=== PATIENT | male | born 1960 | race American Indian/Alaskan Native ===

== ENCOUNTER 2018-10-02 14:19 | Inpatient (IN) | payer OTHER ==
--- NOTE | 2018-10-02 15:04 | Event Note ---
ED Screening Note ED Screening Note: woke up yest with r side weakness pmh none psh none rx none thought it would go away slight r hand grasp weakness taking po ambulatory This initial assessment/diagnostic orders/clinical plan/treatment(s) is/are subject to change based on patients health status, clinical progression and re- assessment by fellow clinical providers in the ED. Further treatment and workup at subsequent clinical providers discretion. Patient/guardian urged not to elope from the ED as their condition may be serious if not clinically assessed and managed. Initial orders include: labs urine [address] C Jc [facility]
[2018-10-02 15:38] LABS: Basophils % (Auto) 0.6 % (0.0-1.8); Eosinophils # (Auto) 0.2 K/mm3 (0.0-0.4); Hematocrit 41.7 % (35.5-45.6); Hemoglobin 13.9 gm/dl (11.8-15.2); Lymphocytes # (Auto) 1.5 K/mm3 (1.2-5.4); Lymphocytes % (Auto) 17.3 % (13.4-35.0); Mean Corpuscular HGB Conc 33 % (32-34); Mean Corpuscular Volume 94 fl (84-94); Monocytes # (Auto) 0.7 K/mm3 (0.0-0.8); Monocytes % (Auto) 8.2 % (0.0-7.3); Platelet Count 337 K/mm3 (140-440); Red Blood Count 4.43 M/mm3 (3.65-5.03); Red Cell Distribution Width 14.4 % (13.2-15.2)
[2018-10-02 15:56] LABS: Creatine Kinase MB 3.6 ng/mL (0.0-4.0)
[2018-10-02 15:59] LABS: Alanine Aminotransferase 17 units/L (7-56); Albumin 4.1 g/dL (3.9-5); BUN/Creatinine Ratio 13; Blood Urea Nitrogen 10 mg/dL (9-20); Calcium 9.1 mg/dL (8.4-10.2); Hemolysis Index 58
--- NOTE | 2018-10-02 16:34 | Cat Scan Report ---
PROCEDURE: CT head without contrast. TECHNIQUE: Computerized tomography of the head was performed without contrast material. CT DOSE LENGTH PRODUCT: 1370.45 mGycm HISTORY: weak r side since yesterday am COMPARISONS: None. FINDINGS: The ventricles are normal in size. There are 2 small focal areas of diminished attenuation within the deep white matter of both frontal lobes. These are consistent with old lacunar infarcts. There may a lso be some focal areas of encephalomalacia involving the medial portions of both frontal lobes. This is seen on image 20 of series 2. This could represent a previous cortical infarct. It could also rep resent partial volume averaging with a horizontal sulcus. An MRI scan would be the best means of furt her evaluation. There are no mass lesions. There is no intracranial hemorrhage. The calvarium appears intact. The mastoid air cells and visualized paranasal sinuses are well aerated. There is a small william bcutaneous lipoma in the left temporal region. This measures 2.4 cm x 0.5 cm in cross-section. IMPRESSION: Probable chronic ischemic changes as described. No definite signs of acute disease. MRI s can may be indicated. Small left-sided scalp lipoma. This document is electronically signed by Woodrow Parr MD., Oct 02 2018 05:32:07 PM ET
[2018-10-02 16:52] LABS: Bilirubin,Urine NEG (Negative); Blood,Urine SM (Negative); Color,Urine Yellow (Yellow); Mucus,Urine FEW /HPF; Protein,Urine <15 mg/dL mg/dL (Negative); Urobilinogen,Urine < 2.0 mg/dL (<2.0)
[2018-10-02] MEDS ORDERED: ASPIRIN PO ONE (17:13)
--- NOTE | 2018-10-02 17:17 | Emergency Department Report ---
HPI - General Chief Complaint: Neuro Symptoms/Deficit Time Seen by Provider: 10/02/18 15:04 - HPI HPI: Room 6 The patient is a 57-year-old male presenting with a chief complaint of right- sided weakness. Patient states he noticed yesterday morning when he awakened at 09:30 he had weakness in his right upper extremity and right lower extremity. Patient denies numbness dizziness or pain. Patient's last known well time was 21:3 09/30/2018. The patient states she has difficulty holding things with his right upper extremity. Patient states he had a slight headache last night but took an aspirin and it resolved. Location: [See above] Duration: [See above] Quality: Weakness Severity: Moderate Modifying factors: [see above] Context: [see above] Mode of transportation: [not driving] ED Past Medical Hx - Past Medical History Hx Hypertension: Yes - Surgical History Past Surgical History?: No - Family History Family history: no significant - Social History Smoking Status: Never Smoker Substance Use Type: None (denies illicit drug use), Alcohol (occasional) ED Review of Systems ROS: Stated complaint: R SIDE NUMBNESS/WEAKNESS Other details as noted in HPI Constitutional: no symptoms reported Eyes: denies: eye pain ENT: denies: throat pain Respiratory: no symptoms reported Cardiovascular: denies: chest pain Endocrine: no symptoms reported Gastrointestinal: denies: abdominal pain Genitourinary: denies: dysuria Musculoskeletal: denies: back pain Neurological: headache, weakness. denies: numbness Physical Exam - Physical Exam Vital Signs: Vital Signs 10/02/18 15:04 Temperature 98.3 F Pulse Rate 98 H Respiratory 20 Rate Blood Pressure 138/81 [Right] O2 Sat by Pulse 98 Oximetry Physical Exam: GENERAL: The patient is well-developed well-nourished male lying on stretcher not appear to be in acute distress. [] HEENT: Normocephalic. Atraumatic. Extraocular motions are intact. Patient has moist mucous membranes. NECK: Supple. No carotid bruits auscultated CHEST/LUNGS: Clear to auscultation. There is no respiratory distress noted. HEART/CARDIOVASCULAR: Regular. There is no tachycardia. There is no gallop rub or murmur. ABDOMEN: Abdomen is soft, nontender. Patient has normal bowel sounds. There is no abdominal distention. SKIN: There is no rash. There is no edema. There is no diaphoresis. NEURO: The patient is awake, alert, and oriented. The patient is cooperative. Cranial nerves II through XII grossly intact. Slight drift of the right upper extremity but he does not fall to the bed. The left leg drifts slightly but does not fall to the bed in 5 seconds. The patient has normal speech MUSCULOSKELETAL: There is no evidence of acute injury. NIHSS= 2 LOC a. Alert= 0 Not alert but arousable to minor stimuli=1 Not alert requires repeated or strong stimuli to move= 2 Responds only reflex motor or unresponsive=3 b. asks month and age answers both correctly= 0 answers one correctly= 1 answers neither correctly= 2 Best Gaze normal= 0 abnormal in one or both but forced deviation or total paresis absent= 1 forced deviation or total gaze paresis= 2 Visual no visual loss= 0 partial hemianopia= 1 complete hemianopia= 2 bilateral hemianopia= 3 Facial Palsy normal= 0 minor paralysis= 1 partial paralysis= 2 complete paralysis= 3 Motor Arm no drift= 0 (+)drift before 10 secs but doesnt hit bed= 1 some effort against gravity= 2 no effort against gravity= 3 no movement= 4 Motor leg no drift= 0 (+)drift before 5 secs but doesnt hit bed= 1 drifts to bed before 5 secs= 2 no effort against gravity= 3 no movement= 4 Limb ataxia absent=0 present in one limb= 1 present in two limbs= 2 Sensory normal= 0 mild sensory loss= 1 severe (unaware of being touched)= 2 Best language mild/some loss of fluency= 1 severe= 2 mute= 3 Dysarthria normal= 0 slurs some words= 1 severe/unintelligible= 2 Extinction and Inattention no abnormality= 0 visual, tactile, auditory or personal inattention= 1 profound (doesnt recognize own hand or orients to only one side= 2 ED Course Vital Signs 10/02/18 15:04 Temperature 98.3 F Pulse Rate 98 H Respiratory 20 Rate Blood Pressure 138/81 [Right] O2 Sat by Pulse 98 Oximetry ED Medical Decision Making - Lab Data Result diagrams: 10/02/18 15:20 10/02/18 15:20 - EKG Data -: EKG Interpreted by Mn EKG shows normal: sinus rhythm Rate: normal - EKG Data When compared to previous EKG there are: previous EKG unavailable Interpretation: nonspecific ST-T wave drake (flat and T-wave lead aVL) - Radiology Data Radiology results: report reviewed (CT head), image reviewed (CT head) [facility] [address] [place] [address] Cat Scan Report Signed Patient: PAULA CEBALLOS MR#: [id number] : 1960 Acct:[id number] Age/Sex: 57 / M ADM Date: 10/02/18 Loc: ED Attending Dr: Ordering Physician: JAMEE HUSAIN Date of Service: 10/02/18 Procedure(s): CT head/brain wo con Accession Number(s): [id number] cc: JAMEE HUSAIN PROCEDURE: CT head without contrast. TECHNIQUE: Computerized tomography of the head was performed without contrast material. CT DOSE LENGTH PRODUCT: 1370.45 mGycm HISTORY: weak r side since yesterday am COMPARISONS: None. FINDINGS: The ventricles are normal in size. There are 2 small focal areas of diminished attenuation within the deep white matter of both frontal lobes. These are consistent with old lacunar infarcts. There may also be some focal areas of encephalomalacia involving the medial portions of both frontal lobes. This is seen on image 20 of series 2. This could represent a previous cortical infarct. It could also represent partial volume averaging with a horizontal sulcus. An MRI scan would be the best means of further evaluation. There are no mass lesions. There is no intracranial hemorrhage. The calvarium appears intact. The mastoid air cells and visualized paranasal sinuses are well aerated. There is a small subcutaneous lipoma in the left temporal region. This measures 2.4 cm x 0.5 cm in cross-section. IMPRESSION: Probable chronic ischemic changes as described. No definite signs of acute disease. MRI scan may be indicated. Small left-sided scalp lipoma. This document is electronically signed by Woodrow Parr MD., Oct 02 2018 05:32:07 PM ET Transcribed By: [facility] Dictated By: WOODROW PARR MD Electronically Authenticated By: WOODROW PARR MD Signed Date/Time: 10/02/18 1634 DD/ 16 TD/TT: 05/31 /19 1617 - Differential Diagnosis CVA Critical care attestation.: If time is entered above; I have spent that time in minutes in the direct care of this critically ill patient, excluding procedure time. ED Disposition Clinical Impression: CVA (cerebral vascular accident), Right sided weakness Disposition: OP ADMIT IP TO THIS HOSP Is pt being admited?: Yes Does the pt Need Aspirin: Yes Condition: Fair Time of Disposition: 17:18 (hospitalist paged (Dr Mccormick))
[2018-10-02] MEDS ORDERED: MILK OF MAGNESIA PO PRN (17:28)
[2018-10-02] MEDS ORDERED: DULCOLAX PR PRN (17:28)
[2018-10-02] MEDS ORDERED: PHENERGAN PR PRN (17:28)
[2018-10-02] MEDS ORDERED: REGLAN PO PRN (17:28)
[2018-10-02] MEDS ORDERED: PROVENTIL IH PRN (17:28)
--- NOTE | 2018-10-02 17:32 | History and Physical Report ---
History of Present Illness Chief complaint: I feel weak on my right side History of present illness: 57 YO Male with HTN, Obesity presents to ED for evaluation. Pt states that he experienced right arm and leg weakness on the day prior to admission. Pt was last in his usual state of health at bedtime around 2100hrs on 09/30/18. Pt awoke from sleep on the morning of 10/01/18 with the aforementioned symptoms. Pt states that he thought that the symptoms wound go away, and he proceeded with his normal activities with difficulty. Pt states that the symptoms have not improved. Pt transported to [facility] via private vehicle. Pt seen and evaluated in ED and found to have symptoms consistent with CVA. A code stroke was called, Pt is outside therapeutic window for TPA. Pt admitted to telemetry and initiated on CVA protocol. Pt denies fever, chills, CP, Palpitations, NVD, Trauma, BRBPR, Unintentional weight loss, night sweats, or recent ill contacts. Neurology consulted in ED. No prior admissions for review. No medication listed for reconciliation at time of admission. Past History Past Medical History: hypertension, other (Obesity) Past Surgical History: No surgical history, Other (reviewed) Social history: single. denies: smoking, alcohol abuse, prescription drug abuse Family history: hypertension Medications and Allergies Allergies Allergy/AdvReac Type Severity Reaction Status Date / Time No Known Allergies Allergy Verified 10/02/18 15:05 Active Meds: Active Medications Sodium Chloride (Sodium Chloride Flush Syringe 10 Ml) 10 ml INJ PRN PRN PRN Reason: LINE FLUSH Review of Systems Constitutional: no weight loss Ears, nose, mouth and throat: no deferred, no ear pain, no nose pain, no nasal congestion Cardiovascular: no chest pain, no orthopnea, no palpitations, no rapid/irregular heart beat, no syncope, no lightheadedness Respiratory: no cough, no cough with sputum, no excessive sputum, no hemoptysis, no shortness of breath, no dyspnea on exertion Gastrointestinal: no abdominal pain, no nausea, no vomiting, no diarrhea, no constipation Genitourinary Male: no hematuria, no flank pain, no discharge, no urinary frequency Rectal: no pain, no incontinence, no bleeding Musculoskeletal: no neck stiffness, no neck pain, no shooting arm pain, no arm numbness/tingling, no shooting leg pain, no leg numbness/tingling Integumentary: no rash, no pruritis, no redness, no sores, no wounds, no jaundice Neurological: weakness, numbness, lack of coordination, gait dysfunction, no head injury, no transient paralysis, no vertigo, no headaches, no migraines Psychiatric: no anxiety, no memory loss, no change in sleep habits, no sleep disturbances, no disorientation Endocrine: no cold intolerance, no heat intolerance, no polyphagia, no excessive thirst, no polydipsia Hematologic/Lymphatic: no easy bruising, no easy bleeding, no lymphadenopathy, no lymphedema Allergic/Immunologic: no urticaria, no allergic rhinitis, no wheezing, no persistent infections, no anaphylaxis Exam - Constitutional Vitals: Temp Pulse Resp BP Pulse Ox 98.9 F 80 13 215/119 98 10/02/18 17:27 10/02/18 17:27 10/02/18 17:27 10/02/18 17:27 10/02/18 17:27 General appearance: Present: no acute distress, well-nourished - EENT Eyes: Present: PERRL ENT: hearing intact, clear oral mucosa - Neck Neck: Present: supple, normal ROM - Respiratory Respiratory effort: normal Respiratory: bilateral: CTA - Cardiovascular Heart Sounds: Present: S1 & S2. Absent: rub, click - Extremities Extremities: pulses symmetrical, No edema Peripheral Pulses: within normal limits - Abdominal General gastrointestinal: Present: soft, non-tender, non-distended, normal bowel sounds Male genitourinary: Present: normal - Integumentary Integumentary: Present: clear, warm, dry - Musculoskeletal Musculoskeletal: right sided weakness - Psychiatric Psychiatric: appropriate mood/affect, intact judgment & insight - Neurologic Neurologic: CNII-XII intact, moves all extremities, no gait normal Results - Labs CBC & Chem 7: 10/02/18 15:20 10/02/18 15:20 Labs: Abnormal lab results 10/02/18 10/02/18 Range/Units 15:20 15:20 [place] % (Auto) 8.2 H (0.0-7.3) % Seg Neutrophils % 71.9 H (40.0-70.0) % Total Creatine Kinase 265 H (55-170) units/L Assessment and Plan - Patient Problems (1) Obesity Current Visit: Yes Status: Acute (2) HTN (hypertension) Current Visit: Yes Status: Acute Qualifiers: Hypertension type: essential hypertension Qualified Code(s): I10 - Essential (primary) hypertension Plan to address problem: permissive hypertension overnight, monitor bp q shift, (3) CVA (cerebral vascular accident) Current Visit: No Status: Acute Qualifiers: Precerebral and cerebral artery: middle cerebral artery Laterality of affected vessel: left Plan to address problem: CVA Protocol: CT head, MRI Brain, MRA Brain, Echo, Carotid Doppler, Antiplatet therapy, PT/OT/Speech, Lipid panel, statin therapy, Neurology consulted. (4) Right sided weakness Current Visit: No Status: Acute Plan to address problem: PT consulted, OT consulted, (5) DVT prophylaxis Current Visit: Yes Status: Acute Plan to address problem: SCD to BLE while in bed, pt ambulatory
[2018-10-02] MEDS ORDERED: ASPIRIN ONE (18:44)
--- NOTE | 2018-10-02 19:43 | Vascular Lab Report ---
PROCEDURE: Bilateral duplex carotid artery ultrasound. TECHNIQUE: Duplex Doppler ultrasound of the common, internal and external carotid arteries and the v ertebral arteries was performed bilaterally. Agarwal scale imaging, velocity spectral waveform analysis, and color flow Doppler were employed. HISTORY: stroke COMPARISONS: None. Note: Measurement of carotid stenosis is based on flow velocity values that correlate with the [place] Symptomatic Carotid Endarterectomy Trial (NASCET) based stenosis criteria using the internal carotid artery diameter as the denominator for stenosis calculation. FINDINGS: Right side: The common carotid artery appears widely patent. There is no significant plaque formation identified visually. The peak systolic velocity measurements are as follows: Mid internal carotid ar lucas 96.9 cm/s, proximal common carotid artery 129.7 cm/s, right internal carotid/common carotid [place] ratio 0.75. These values are within normal limits and indicate a less than 50% stenosis of the i nternal carotid artery by Doppler criteria. Antegrade flow is confirmed in the right vertebral artery . Left side: There is no significant plaque formation visible. The left common carotid artery appears p atent. The peak systolic velocity measurements are as follows: Distal left internal carotid artery 10 1.8 cm/s, proximal common carotid artery 123.6 cm/s, left internal carotid/common carotid velocity ra elkin 0.82. These values are within normal limits and indicate a less than 50% stenosis of the internal carotid artery. Antegrade flow is confirmed in the left vertebral artery. IMPRESSION: Less than 50% stenosis of both internal carotid arteries. This document is electronically signed by Woodrow Parr MD., Oct 02 2018 08:41:23 PM ET
[2018-10-02] MEDS: APRESOLINE IV PRN (20:50)
[2018-10-03] MEDS: APRESOLINE IV PRN ×4 (00:51→21:44)
[2018-10-03] MEDS: TYLENOL PO PRN ×2 (08:49→18:52)
[2018-10-03] MEDS: PLAVIX PO SCH ×2 (08:50→10:29)
[2018-10-03] MEDS: SODIUM CHLORIDE FLUSH SYRINGE 10 ML IV PRN (21:44)
[2018-10-04] MEDS: APRESOLINE IV PRN ×4 (01:17→21:54)
[2018-10-04] MEDS: ZOFRAN IV PRN (04:30)
[2018-10-04] MEDS: NORVASC PO SCH (09:56)
[2018-10-04] MEDS: PLAVIX PO SCH (09:57)
[2018-10-04] MEDS: SODIUM CHLORIDE FLUSH SYRINGE 10 ML IV PRN (10:00)
--- NOTE | 2018-10-04 15:21 | Progress Note ---
Assessment and Plan (1) Acute CVA (cerebral vascular accident) Current Visit: No Status: Acute Qualifiers: Precerebral and cerebral artery: middle cerebral artery Laterality of affected vessel: left Plan to address problem: CVA Protocol: CT head, MRI Brain, MRA Brain, Echo, Carotid Doppler, Antiplatet therapy, PT/OT/Speech, Lipid panel, statin therapy, Neurology consulted. 3/5 power in RUE 4/5 power in RLE MRI could not be donebecause of patients weight (2) HTN (hypertension) Current Visit: Yes Status: Acute Qualifiers: Hypertension type: essential hypertension Qualified Code(s): I10 - Essential (primary) hypertension Plan to address problem: permissive hypertension overnight, monitor bp q shift, (3) Obesity Current Visit: Yes Status: Acute Bariatric surgery referral as outpatient (4) Right sided weakness Current Visit: No Status: Acute Plan to address problem: PT consulted, OT consulted, (5) DVT prophylaxis Current Visit: Yes Status: Acute Plan to address problem: SCD to BLE while in bed, pt ambulatory Subjective Date of service: 10/03/18 Principal diagnosis: L CVA with Rt side weakness Interval history: Power improving MRI and MRA could not be done because of his weight Objective - Constitutional Vitals: Vital Signs - 12hr 10/04/18 10/04/18 10/04/18 05:12 09:17 09:56 Temperature 99.4 F Pulse Rate 95 H 95 H Respiratory 18 Rate Blood Pressure 158/85 183/98 O2 Sat by Pulse 93 94 Oximetry 10/04/18 10/04/18 10/04/18 09:58 11:00 12:00 Temperature 99.5 F Pulse Rate 95 H 95 H 108 H Respiratory 17 16 Rate Blood Pressure 183/98 138/91 O2 Sat by Pulse 96 Oximetry General appearance: Present: no acute distress, well-nourished - EENT Eyes: PERRL, EOM intact ENT: hearing intact, clear oral mucosa Ears: bilateral: normal - Neck Neck: supple, normal ROM - Respiratory Respiratory effort: normal Respiratory: bilateral: CTA - Breasts Breasts: normal - Cardiovascular Rhythm: regular Heart Sounds: Present: S1 & S2. Absent: gallop, rub Extremities: pulses intact, No edema, normal color, Full ROM - Gastrointestinal General gastrointestinal: Present: soft, non-tender, non-distended, normal bowel sounds - Genitourinary Male genitourinary: normal - Integumentary Integumentary: clear, warm, dry - Musculoskeletal Musculoskeletal: 1, strength equal bilaterally - Neurologic Neurologic: moves all extremities - Psychiatric Psychiatric: memory intact, appropriate mood/affect, intact judgment & insight - Labs CBC & Chem 7: 10/02/18 15:20 10/02/18 15:20
[2018-10-05] MEDS: APRESOLINE IV PRN ×2 (02:12→18:28)
[2018-10-05] MEDS: ZOFRAN IV PRN (02:50)
[2018-10-05] MEDS: NORVASC PO SCH (12:01)
[2018-10-05] MEDS: PLAVIX PO SCH (12:02)
--- NOTE | 2018-10-05 14:18 | Consultation ---
History of Present Illness Consult date: 10/05/18 Consult reason: arrhythmia (NSVT) History of present illness: This is a 58 year old man with a history of hypertension who is admitted for suspected CVA. Neurology evaluation and workup is in progress. A cardiac consultation has been requested for transient ectopy seen on telemetry. A 12 lead ECG is sinus rhythm, no acute ischemic changes. There were no reports of shortness of breath, chest pain or palpitations. Patient remained asymptomatic. An echocardiogram done today reports a technically difficult study but normal left ventricular systolic function, ejection fraction 55-60%. Bubble study is suboptimal. Past History Past Medical History: hypertension, other (Obesity) Past Surgical History: No surgical history, Other (reviewed) Social history: single. denies: smoking, alcohol abuse, prescription drug abuse Family history: hypertension Medications and Allergies Allergies Allergy/AdvReac Type Severity Reaction Status Date / Time No Known Allergies Allergy Verified 10/02/18 15:05 Home Medications Medication Instructions Recorded Confirmed Last Taken Type No Known Home Medications [No 10/02/18 10/02/18 Unknown History Reported Home Medications] Active Meds: Active Medications Acetaminophen (Tylenol) 650 mg PO Q4H PRN PRN Reason: Pain, Mild (1-3) Last Admin: 10/03/18 18:52 Dose: 650 mg Documented by: Albuterol (Proventil) 2.5 mg IH Q3HRT PRN PRN Reason: Shortness Of Breath Amlodipine Besylate (Norvasc) 5 mg PO QDAY [facility] Last Admin: 10/05/18 12:01 Dose: 5 mg Documented by: Atorvastatin Calcium (Lipitor) 40 mg PO QHS [facility] Last Admin: 10/04/18 21:54 Dose: 40 mg Documented by: Bisacodyl (Dulcolax) 10 mg MD QDAY PRN PRN Reason: Constipation Clopidogrel Bisulfate (Plavix) 75 mg PO QDAY [facility] Last Admin: 10/05/18 12:02 Dose: 75 mg Documented by: Hydralazine HCl (Apresoline) 10 mg IV Q3H PRN PRN Reason: Hypertension Last Admin: 10/05/18 02:12 Dose: 10 mg Documented by: Magnesium Hydroxide (Milk Of Magnesia) 30 ml PO Q4H PRN PRN Reason: Constipation Metoclopramide HCl (Reglan) 10 mg PO Q6H PRN PRN Reason: Nausea And Vomiting Ondansetron HCl (Zofran) 4 mg IV Q8H PRN PRN Reason: Nausea And Vomiting Last Admin: 10/05/18 02:50 Dose: 4 mg Documented by: Promethazine HCl (Phenergan) 25 mg MD Q6H PRN PRN Reason: Nausea And Vomiting Sodium Chloride (Sodium Chloride Flush Syringe 10 Ml) 10 ml IV PRN PRN PRN Reason: LINE FLUSH Last Admin: 10/04/18 10:00 Dose: 10 ml Documented by: Physical Examination Vital Signs Temp Pulse Resp BP Pulse Ox 98.3 F 98 H 20 138/81 98 10/02/18 15:04 10/02/18 15:04 10/02/18 15:04 10/02/18 15:04 10/02/18 15:04 General appearance: no acute distress, obese Cardiac: Positive: Reg Rate and Rhythm Lungs: Positive: Decreased Breath Sounds Results 10/02/18 15:20 10/02/18 15:20 Assessment and Plan Suspected CVA per neurology Hypertension Transient NSVT pt remained asymptomatic Obese Echocardiogram done today reports a technically difficult study but normal left ventricular systolic function, ejection fraction 55-60%. Bubble study is suboptimal. Recommend: Check a TSH and magnesium. Continue telemetry monitoring.
--- NOTE | 2018-10-05 15:03 | Consultation ---
Past History Past Medical History: hypertension, other (Obesity) Past Surgical History: No surgical history, Other (reviewed) Social history: single. denies: smoking, alcohol abuse, prescription drug abuse Family history: hypertension Medications and Allergies Allergies Allergy/AdvReac Type Severity Reaction Status Date / Time No Known Allergies Allergy Verified 10/02/18 15:05 Home Medications Medication Instructions Recorded Confirmed Last Taken Type No Known Home Medications [No 10/02/18 10/02/18 Unknown History Reported Home Medications] Active Meds: Active Medications Acetaminophen (Tylenol) 650 mg PO Q4H PRN PRN Reason: Pain, Mild (1-3) Last Admin: 10/03/18 18:52 Dose: 650 mg Documented by: Albuterol (Proventil) 2.5 mg IH Q3HRT PRN PRN Reason: Shortness Of Breath Amlodipine Besylate (Norvasc) 5 mg PO QDAY [facility] Last Admin: 10/05/18 12:01 Dose: 5 mg Documented by: Atorvastatin Calcium (Lipitor) 40 mg PO QHS [facility] Last Admin: 10/04/18 21:54 Dose: 40 mg Documented by: Bisacodyl (Dulcolax) 10 mg GA QDAY PRN PRN Reason: Constipation Clopidogrel Bisulfate (Plavix) 75 mg PO QDAY [facility] Last Admin: 10/05/18 12:02 Dose: 75 mg Documented by: Hydralazine HCl (Apresoline) 10 mg IV Q3H PRN PRN Reason: Hypertension Last Admin: 10/05/18 02:12 Dose: 10 mg Documented by: Magnesium Hydroxide (Milk Of Magnesia) 30 ml PO Q4H PRN PRN Reason: Constipation Metoclopramide HCl (Reglan) 10 mg PO Q6H PRN PRN Reason: Nausea And Vomiting Ondansetron HCl (Zofran) 4 mg IV Q8H PRN PRN Reason: Nausea And Vomiting Last Admin: 10/05/18 02:50 Dose: 4 mg Documented by: Promethazine HCl (Phenergan) 25 mg GA Q6H PRN PRN Reason: Nausea And Vomiting Sodium Chloride (Sodium Chloride Flush Syringe 10 Ml) 10 ml IV PRN PRN PRN Reason: LINE FLUSH Last Admin: 10/04/18 10:00 Dose: 10 ml Documented by: Physical Examination - Vital Signs Vital Signs: Vital Signs Temp Pulse Resp BP Pulse Ox 98.3 F 98 H 20 138/81 98 10/02/18 15:04 10/02/18 15:04 10/02/18 15:04 10/02/18 15:04 10/02/18 15:04 Results - Laboratory Findings CBC and BMP: 10/02/18 15:20 10/02/18 15:20 Abnormal Lab Findings: Abnormal Labs 10/02/18 10/02/18 15:20 15:20 [place] % (Auto) 8.2 H Seg Neutrophils % 71.9 H Total Creatine Kinase 265 H Assessment and Plan This is a Dr. Harrison dictating the consult report on Sudhakar Valencia is 58-year-old gentleman with history of hypertension,obesity and n o diabetes who developed an episode of right upper and lower extremity weakness which he detected on waking up from sleep on 01 of October. Patient did not come to the hospital because the weakness was mild and he thought that it would go away. However when the weakness persisted until next day he reported to the hospital. Upon arrival to emergency department a stroke code was called and since he was out of the window for TPA administration, he was not given TPA and was admitted to regular floor. The patient had a CT scan of the brain which showed infarct of undetermined age on the left white matter of the frontal lobe. However the infarct was not acute. Admitting physician ordered carotid duplex, which showed less than 50% narrowing of internal carotid arteries on both sides. Echocardiogram was ordered and done however the result is pending. All other orders per stroke protocol including PT OT and speech evaluation has been ordered. Patient has been started on antiplatelet therapy with 75 mg of Plavix every day. Has been started on Lipitor 40 mg per day. Lipid profile has been ordered the result is not back yet. Physical examination. Patient is alert and appropriate. He communicates well. There is no aphasia and his mental status is normal. Heart. Normal rate and rhythm Carotids:. Both palpable Cranial nerves: Patient did not have any facial asymmetry,extraocular movement is intact. Pupils reactive to light and accommodation. Sensation in the face is normal.Patient could swallow and movement of the tongue was within normal limit. Motor: Patient has weak right upper and weak right lower extremities, upper extremities more so than the lower extremities. He can raise the arms against gravity. 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 He has weak both upper and lower extremities both proximally and distally. Reflexes. Due to obesity it was difficult to elicit reflex, however with the limitation of eliciting reflexes he was found to have slightly increased refl exes on the right side as compared to the left. His plantar response was up going on the right side. Sensory examination: Sensory examination was grossly within normal limits Date. Gait examination was deferred considering discomfort to the patient. Impression #1 patient seems to have subacute infarct in the left frontal lobe white matter, small vessel disease Recommendation. #. continue PT OT #2. Agree with Plavix and statin,and based on the results of the lipid profile further adjustment of stating may be made. #3. Recommend dietary and nutritional counseling for that reason he'll need dietary consult #4. further recommendation to follow after Echocardiogram result is available if indicated. #5 patient also seems to have obstructive sleep apnea after talking to his fiance it became apparent. Also examination of the oropharyngeal space found to be crowded which again indicates that he could have sleep apnea. Patient should get a sleep evaluation and sleep study as obstructive sleep apnea is a risk factor for stroke.
[2018-10-05 16:17] LABS: Chol/HDL Ratio 4.21 %
--- NOTE | 2018-10-05 19:42 | Progress Note ---
Assessment and Plan (1) Acute CVA (cerebral vascular accident) Current Visit: No Status: Acute Qualifiers: Precerebral and cerebral artery: middle cerebral artery Laterality of affected vessel: left Plan to address problem: CVA Protocol: CT head, MRI Brain, MRA Brain, Echo, Carotid Doppler, Antiplatet therapy, PT/OT/Speech, Lipid panel, statin therapy, Neurology consulted. 3/5 power in RUE 4/5 power in RLE MRI could not be done because of patients weight Acute rehab ordered ECHO EF 55 to 60 percent (2) HTN (hypertension) Current Visit: Yes Status: Acute Qualifiers: Hypertension type: essential hypertension Qualified Code(s): I10 - Essential (primary) hypertension Plan to address problem: permissive hypertension overnight, monitor bp q shift, (3) Obesity Current Visit: Yes Status: Acute Bariatric surgery referral as outpatient (4) Right sided weakness Current Visit: No Status: Acute Plan to address problem: PT consulted, OT consulted, (5) DVT prophylaxis Current Visit: Yes Status: Acute Plan to address problem: SCD to BLE while in bed, pt ambulatory Subjective Date of service: 10/05/18 Principal diagnosis: L CVA with Rt side weakness Interval history: Power improving MRI and MRA could not be done because of his weight Objective - Constitutional Vitals: Vital Signs - 12hr 10/05/18 10/05/18 10/05/18 08:03 11:00 11:59 Temperature 99.2 F 98.8 F Pulse Rate 103 H 83 Pulse Rate [ 83 Apical] Respiratory 18 18 18 Rate Blood Pressure 146/86 178/93 O2 Sat by Pulse 91 96 Oximetry 10/05/18 10/05/18 10/05/18 12:01 12:38 17:28 Temperature 98.6 F Pulse Rate 83 87 Pulse Rate [ Apical] Respiratory 18 Rate Blood Pressure 178/93 166/83 O2 Sat by Pulse 96 95 Oximetry 10/05/18 18:28 Temperature Pulse Rate 87 Pulse Rate [ Apical] Respiratory Rate Blood Pressure 166/83 O2 Sat by Pulse Oximetry General appearance: Present: no acute distress, well-nourished - EENT Eyes: PERRL, EOM intact ENT: hearing intact, clear oral mucosa Ears: bilateral: normal - Neck Neck: supple, normal ROM - Respiratory Respiratory effort: normal Respiratory: bilateral: CTA - Breasts Breasts: normal - Cardiovascular Rhythm: regular Heart Sounds: Present: S1 & S2. Absent: gallop, rub Extremities: pulses intact, No edema, normal color, Full ROM - Gastrointestinal General gastrointestinal: Present: soft, non-tender, non-distended, normal bowel sounds - Genitourinary Male genitourinary: deferred - Integumentary Integumentary: clear, warm, dry - Musculoskeletal Musculoskeletal: right sided weakness (3/5 power both RUE and RLE) - Neurologic Neurologic: CNII-XII intact, focal deficits, other (Gait abnormal--circumduction gait) - Psychiatric Psychiatric: memory intact, appropriate mood/affect, intact judgment & insight - Labs CBC & Chem 7: 10/02/18 15:20 10/02/18 15:20 Labs: Abnormal lab results 10/05/18 Range/Units 15:00 HDL Cholesterol 38 L (40-59) mg/dL
[2018-10-05] MEDS: PROCARDIA XL PO SCH (21:17)
[2018-10-05] MEDS: LOPRESSOR PO SCH (21:17)
[2018-10-06 06:58] LABS: Alanine Aminotransferase 15 units/L (7-56); Albumin 3.6 g/dL (3.9-5); BUN/Creatinine Ratio 16; Blood Urea Nitrogen 14 mg/dL (9-20); Calcium 8.5 mg/dL (8.4-10.2); Hemolysis Index 10
[2018-10-06] MEDS: LOPRESSOR PO SCH ×2 (10:16→22:11)
[2018-10-06] MEDS: PLAVIX PO SCH (10:17)
[2018-10-06] MEDS: PROCARDIA XL PO SCH (10:17)
--- NOTE | 2018-10-06 11:01 | Progress Note ---
Assessment and Plan Acute CVA initiated on plavix Hypertension Transient NSVT pt remained asymptomatic TSH is normal on metoprolol for suppression Obese Echocardiogram showed normal left ventricular systolic function, ejection fraction 55-60%. Contrast bubble study was suboptimal, but negative for PFO. Recommendations: We will order a magnesium. We will increase Procardia XL to 90mg daily for optimal BP management. Otherwise conservative cardiac management. Subjective Date of service: 10/06/18 Principal diagnosis: L CVA with Rt side weakness Interval history: Patient has no cardiac complaints. Blood pressure currently 167/94. Objective Vital Signs Temp Pulse Pulse Resp BP Pulse Ox 10/06/18 10:16 76 167/94 10/06/18 09:04 98 10/06/18 07:47 98.7 F 76 18 167/94 92 10/06/18 04:05 98.7 F 72 20 153/92 95 10/06/18 00:08 98.3 F 10/06/18 00:04 66 18 145/80 95 10/05/18 20:54 22 10/05/18 20:53 80 10/05/18 20:04 85 96 10/05/18 20:03 98.0 F 81 17 180/94 95 10/05/18 18:28 87 166/83 10/05/18 17:28 98.6 F 87 18 166/83 95 10/05/18 12:38 96 10/05/18 12:01 83 178/93 10/05/18 11:59 98.8 F 83 18 178/93 96 10/05/18 11:00 83 18 - Physical Examination General: No Apparent Distress HEENT: Positive: PERRL Cardiac: Positive: Reg Rate and Rhythm Lungs: Positive: Decreased Breath Sounds Neuro: Positive: Weakness Extremities: Absent: edema - Labs and Meds Cardiac Enzymes 10/06/18 Range/Units 05:41 AST 13 (5-40) units/L Lipids 10/05/18 Range/Units 15:00 Triglycerides 92 (2-149) mg/dL Cholesterol 160 (50-199) mg/dL HDL Cholesterol 38 L (40-59) mg/dL Cholesterol/HDL Ratio 4.21 % Comprehensive Metabolic Panel 10/06/18 Range/Units 05:41 Sodium 140 (137-145) mmol/L Potassium 4.0 (3.6-5.0) mmol/L Chloride 103.9 (98-107) mmol/L Carbon Dioxide 27 (22-30) mmol/L BUN 14 (9-20) mg/dL Creatinine 0.9 (0.8-1.5) mg/dL Glucose 121 H (75-100) mg/dL Calcium 8.5 (8.4-10.2) mg/dL AST 13 (5-40) units/L ALT 15 (7-56) units/L Alkaline Phosphatase 77 (35-129) units/L Total Protein 6.5 (6.3-8.2) g/dL Albumin 3.6 L (3.9-5) g/dL
--- NOTE | 2018-10-06 14:44 | Progress Note ---
Assessment and Plan Assessment and plan: (1) Acute CVA (cerebral vascular accident) Current Visit: No Status: Acute Qualifiers: Precerebral and cerebral artery: middle cerebral artery Laterality of affected vessel: left Plan to address problem: CVA Protocol: CT head, MRI Brain, MRA Brain, Echo, Carotid Doppler, Antiplatet therapy, PT/OT/Speech, Lipid panel, statin therapy, Neurology consulted. 3/5 power in RUE 4/5 power in RLE MRI could not be done because of patients weight CT head; Probable chronic ischemic changes as described. No definite signs of acute disease. Small left-sided scalp lipoma. Acute rehab ordered ECHO EF 55 to 60 percent (2) HTN (hypertension) Uncontrolled; patient is on metoprolol, Procardia, hydralazine, I added clonidine. (3) Obesity Current Visit: Yes Status: Acute Bariatric surgery referral as outpatient (4) Right sided weakness PT consulted, OT consulted, (5) DVT prophylaxis SCD to BLE while in bed, pt ambulatory History Interval history: Patient was seen and evaluated this morning, patient said he had episode of shortness of breath briefly. No other complaints. Hospitalist Physical - Physical exam Narrative exam: Not in cardiopulmonary distress. The patient is obese. Vital signs as documented. Head exam is unremarkable. No scleral icterus . Neck is without jugular venous distension, thyromegaly, or carotid bruits. Lungs are clear to auscultation. Cardiac exam reveals regular rate and Rhythm. First and second heart sounds normal. No murmurs, rubs or gallops. Abdominal exam reveals normal bowel sounds, no masses, no organomegaly and no aortic enlargement. Extremities are nonedematous and both femoral and pedal pulses are normal. 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 Mild right-sided weakness - Constitutional Vitals: Temp Pulse Resp BP Pulse Ox 98.7 F 76 17 167/94 98 10/06/18 07:47 10/06/18 10:16 10/06/18 10:00 10/06/18 10:16 10/06/18 09:04 General appearance: Present: no acute distress, well-nourished Results - Labs CBC & Chem 7: 10/02/18 15:20 10/07/18 05:40 Labs: Laboratory Last Values WBC 8.8 K/mm3 (4.5-11.0) 10/02/18 15:20 RBC 4.43 M/mm3 (3.65-5.03) 10/02/18 15:20 Hgb 13.9 gm/dl (11.8-15.2) 10/02/18 15:20 Hct 41.7 % (35.5-45.6) 10/02/18 15:20 MCV 94 fl (84-94) 10/02/18 15:20 MCH 31 pg (28-32) 10/02/18 15:20 MCHC 33 % (32-34) 10/02/18 15:20 RDW 14.4 % (13.2-15.2) 10/02/18 15:20 Plt Count 337 K/mm3 (140-440) 10/02/18 15:20 Lymph % (Auto) 17.3 % (13.4-35.0) 10/02/18 15:20 [place] % (Auto) 8.2 % (0.0-7.3) H 10/02/18 15:20 Eos % (Auto) 2.0 % (0.0-4.3) 10/02/18 15:20 Baso % (Auto) 0.6 % (0.0-1.8) 10/02/18 15:20 Lymph # 1.5 K/mm3 (1.2-5.4) 10/02/18 15:20 Nicholas # 0.7 K/mm3 (0.0-0.8) 10/02/18 15:20 Eos # 0.2 K/mm3 (0.0-0.4) 10/02/18 15:20 Baso # 0.0 K/mm3 (0.0-0.1) 10/02/18 15:20 Seg Neutrophils % 71.9 % (40.0-70.0) H 10/02/18 15:20 Seg Neutrophils # 6.3 K/mm3 (1.8-7.7) 10/02/18 15:20 Sodium 140 mmol/L (137-145) 10/06/18 05:41 Potassium 4.0 mmol/L (3.6-5.0) 10/06/18 05:41 Chloride 103.9 mmol/L (98-107) 10/06/18 05:41 Carbon Dioxide 27 mmol/L (22-30) 10/06/18 05:41 13 mmol/L 10/06/18 05:41 BUN 14 mg/dL (9-20) 10/06/18 05:41 0.9 mg/dL (0.8-1.5) 10/06/18 05:41 Estimated GFR > 60 ml/min 10/06/18 05:41 16 % 10/06/18 05:41 Glucose 121 mg/dL (75-100) H 10/06/18 05:41 POC Glucose 94 (70-105) 10/02/18 17:31 Calcium 8.5 mg/dL (8.4-10.2) 10/06/18 05:41 Magnesium 2.10 mg/dL (1.7-2.3) 10/06/18 Unknown 0.40 mg/dL (0.1-1.2) 10/06/18 05:41 AST 13 units/L (5-40) 10/06/18 05:41 ALT 15 units/L (7-56) 10/06/18 05:41 77 units/L (35-129) 10/06/18 05:41 265 units/L (55-170) H 10/02/18 15:20 CK-MB (CK-2) 3.6 ng/mL (0.0-4.0) 10/02/18 15:20 CK-MB (CK-2) Rel Index 1.3 (0-4) 10/02/18 15:20 < 0.010 ng/mL (0.00-0.029) 10/02/18 15:20 6.5 g/dL (6.3-8.2) 10/06/18 05:41 3.6 g/dL (3.9-5) L 10/06/18 05:41 1.2 % 10/06/18 05:41 Triglycerides 92 mg/dL (2-149) 10/05/18 15:00 Cholesterol 160 mg/dL (50-199) 10/05/18 15:00 116 mg/dL (50-130) 10/05/18 15:00 38 mg/dL (40-59) L 10/05/18 15:00 4.21 % 10/05/18 15:00 TSH 3.010 mlU/mL (0.270-4.200) 10/05/18 21:11 Yellow (Yellow) 10/02/18 13:55 Clear (Clear) 10/02/18 13:55 7.0 (5.0-7.0) 10/02/18 13:55 Ur Specific [place] 1.019 (1.003-1.030) 10/02/18 13:55 <15 mg/dl mg/dL (Negative) 10/02/18 13:55 Neg mg/dL (Negative) 10/02/18 13:55 Neg mg/dL (Negative) 10/02/18 13:55 Sm (Negative) 10/02/18 13:55 Neg (Negative) 10/02/18 13:55 Neg (Negative) 10/02/18 13:55 < 2.0 mg/dL (<2.0) 10/02/18 13:55 Ur Leukocyte Esterase Neg (Negative) 10/02/18 13:55 3.0 /HPF (0.0-6.0) 10/02/18 13:55 5.0 /HPF (0.0-6.0) 10/02/18 13:55 U Epithel Cells (Auto) 1.0 /HPF (0-13.0) 10/02/18 13:55 Few /HPF 10/02/18 13:55 Active Medications - Current Medications Current Medications: Generic Name Dose Route Start Last Admin Trade Name Freq PRN Reason Stop Dose Admin Acetaminophen 650 mg 10/02/18 17:28 10/03/18 18:52 Tylenol PO 650 mg Q4H PRN Administration Pain, Mild (1-3) Albuterol 2.5 mg 10/02/18 17:28 Proventil IH Q3HRT PRN Shortness Of Breath Atorvastatin Calcium 40 mg 10/02/18 22:00 10/05/18 21:35 Lipitor PO 40 mg QHS MONSE Administration Bisacodyl 10 mg 10/02/18 17:28 Dulcolax TN QDAY PRN Constipation Clopidogrel Bisulfate 75 mg 10/03/18 10:00 10/06/18 10:17 Plavix PO 75 mg QDAY MONSE Administration Hydralazine HCl 10 mg 10/04/18 09:10 10/05/18 18:28 Apresoline IV 10 mg Q3H PRN Administration Hypertension Magnesium Hydroxide 30 ml 10/02/18 17:28 Milk Of Magnesia PO Q4H PRN Constipation Metoclopramide HCl 10 mg 10/02/18 17:28 Reglan PO Q6H PRN Nausea And Vomiting Metoprolol Tartrate 50 mg 10/05/18 22:00 10/06/18 10:16 Lopressor PO 50 mg BID MONSE Administration Nifedipine 60 mg 10/05/18 22:00 10/06/18 10:17 Procardia Xl PO 60 mg QDAY MONSE Administration Ondansetron HCl 4 mg 10/02/18 17:28 10/05/18 02:50 Zofran IV 4 mg Q8H PRN Administration Nausea And Vomiting Promethazine HCl 25 mg 10/02/18 17:28 Phenergan TN Q6H PRN Nausea And Vomiting Sodium Chloride 10 ml 10/02/18 17:28 10/04/18 10:00 Sodium Chloride Flush Syringe 10 Ml IV 10 ml PRN PRN Administration LINE FLUSH
[2018-10-07 07:41] LABS: BUN/Creatinine Ratio 27; Blood Urea Nitrogen 16 mg/dL (9-20); Calcium 8.4 mg/dL (8.4-10.2); Hemolysis Index 7
--- NOTE | 2018-10-07 09:53 | Progress Note ---
Assessment and Plan Acute CVA initiated on plavix Hypertension on metoprolol and Procardia for management Transient NSVT pt remained asymptomatic TSH is normal Obese Echocardiogram showed normal left ventricular systolic function, ejection fraction 55-60%. Contrast bubble study was suboptimal, but negative for PFO. Recommendations: Optimal BP management. Otherwise, conservative cardiac management. Subjective Date of service: 10/07/18 Principal diagnosis: L CVA with Rt side weakness Interval history: Patient has no cardiac complaints. No reported events on telemetry overnight. Objective Vital Signs Temp Pulse Pulse Resp BP Pulse Ox 10/07/18 07:42 85 20 166/85 99 10/07/18 04:09 98.5 F 69 18 156/100 95 10/06/18 23:34 98.1 F 65 18 154/93 95 10/06/18 22:11 76 182/97 10/06/18 22:00 77 18 10/06/18 19:23 98.0 F 76 18 182/92 97 10/06/18 16:31 97.9 F 68 18 146/85 98 10/06/18 10:16 76 167/94 10/06/18 10:00 77 77 17 - Physical Examination General: No Apparent Distress HEENT: Positive: PERRL Cardiac: Positive: Reg Rate and Rhythm Neuro: Positive: Weakness Extremities: Absent: edema - Labs and Meds Comprehensive Metabolic Panel 10/07/18 Range/Units 05:40 Sodium 141 (137-145) mmol/L Potassium 3.8 (3.6-5.0) mmol/L Chloride 103.7 (98-107) mmol/L Carbon Dioxide 27 (22-30) mmol/L BUN 16 (9-20) mg/dL Creatinine 0.6 L (0.8-1.5) mg/dL Glucose 114 H (75-100) mg/dL Calcium 8.4 (8.4-10.2) mg/dL
[2018-10-07] MEDS: LOPRESSOR PO SCH ×2 (09:59→22:31)
[2018-10-07] MEDS: PLAVIX PO SCH (09:59)
[2018-10-07] MEDS: PROCARDIA XL PO SCH (09:59)
--- NOTE | 2018-10-07 10:53 | Discharge Summary ---
Providers - Providers Date of Admission: 10/02/18 17:28 Date of discharge: 10/08/18 Attending physician: CYNDEE HIGHTOWER MD 10/02/18 17:29 Occupational Therapy Evaluate and Treat [CONS] Routine Comment: Reason For Exam: Neuro deficits Physical Therapy Evaluation and Treat [CONS] Routine Comment: Reason For Exam: Neuro deficits, worsening weakness Speech Therapy Evaluation and Treat [CONS] Routine Reason For Exam: swallow eval 10/02/18 17:31 Consult to Physician [CONS] Routine Comment: Consulting Provider: RAJINDER THOMPSON Physician Instructions: Reason For Exam: cva 10/04/18 15:23 Consult to Physician [CONS] Routine Comment: Consulting Provider: BENOIT RICH III Physician Instructions: Reason For Exam: Acute CVA 10/05/18 12:09 Consult to Cardiology [CONS] Routine Consulting Provider: GEOVANI HIDALGO Reason For Exam: 8 beat run vtach 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 No definite signs of acute disease. MRI scan may be indicated. Small left-sided scalp lipoma. Hospital course: 57 YO Male with HTN, Obesity presents to ED for evaluation. Pt states that he experienced right arm and leg weakness on the day prior to admission. Pt was last in his usual state of health at bedtime around 2100hrs on 09/30/18. Pt awoke from sleep on the morning of 10/01/18 with the aforementioned symptoms. Pt states that he thought that the symptoms wound go away, and he proceeded with his normal activities with difficulty. Pt states that the symptoms have not improved. Pt transported to [facility] via private vehicle. Pt seen and evaluated in ED and found to have symptoms consistent with CVA. A code stroke was called, Pt is outside therapeutic window for TPA. Pt admitted to telemetry and initiated on CVA protocol. Pt denies fever, chills, CP, Palpitations, NVD, Trauma, BRBPR, Unintentional weight loss, night sweats, or recent ill contacts. Neurology consulted in ED. No prior admissions for review. No medication listed for reconciliation at time of admission. Patient admitted to the floor and CT head showed probable chronic ischemic changes. His symptoms are consistent with CVA. Patient was treated with statins and Plavix. PT OT recommended outpatient rehabilitation/physical therapy. Discussed with Gutiérrez and they agreed with our plan. His blood pressure was uncontrolled and I have adjusted his blood pressure medications and finally controlled before discharge. Appropriate medication scripts were given at the time of discharge. Patient was hemodynamically stable at the time of discharge. MRI was not done because of his body habitus. Echo was done and no PFO. Carotid Doppler is a 50% candidate stenosis bilaterally. Disposition: [id number] HOME UND[facility] Time spent for discharge: 32 minutes - Discharge Diagnoses (1) CVA (cerebral vascular accident) Status: Acute (2) HTN (hypertension) Status: Acute Qualifiers: Hypertension type: essential hypertension Qualified Code(s): I10 - Essential (primary) hypertension (3) Obesity Status: Acute Core Measure Documentation - Palliative Care Palliative Care/ Comfort Measures: Not Applicable - Core Measures Any of the following diagnoses?: stroke - Stroke Discharge Requirements Statin for LDL = or >70 mg/dl on DC: Yes Anticoag for atrial fib/atrial flutter: Not Applicable Antithrombotic for ischemic stroke: Yes Exam - Physical Exam Narrative exam: Not in cardiopulmonary distress. The patient is obese. Vital signs as documented. Head exam is unremarkable. No scleral icterus . Neck is without jugular venous distension, thyromegaly, or carotid bruits. Lungs are clear to auscultation. Cardiac exam reveals regular rate and Rhythm. First and second heart sounds normal. No murmurs, rubs or gallops. Abdominal exam reveals normal bowel sounds, no masses, no organomegaly and no aortic enlargement. Extremities are nonedematous and both femoral and pedal pulses are normal. 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 Mild right-sided weakness - Constitutional Vitals: Temp Pulse Resp BP Pulse Ox 98.5 F 85 20 166/85 99 10/07/18 04:09 10/07/18 09:59 10/07/18 07:42 10/07/18 09:59 10/07/18 07:42 Plan Activity: advance as tolerated Weight Bearing Status: Weight Bear as Tolerated Diet: low cholesterol, low salt Special Instructions: physical therapy Follow up with: PRIMARY CAREMD [Primary Care Provider] - 7 Days Prescriptions: AtorvaSTATin [Lipitor] 40 mg PO QHS #30 tablet hydrALAZINE [Apresoline TAB] 100 mg PO TID #90 tab cloNIDine [Catapres] 0.2 mg PO Q12HR #60 tablet Metoprolol [Lopressor TAB] 50 mg PO BID #60 tablet Clopidogrel [Plavix] 75 mg PO QDAY #30 tablet NIFEdipine XL [Procardia Xl] 90 mg PO QDAY #30 tablet Albuterol Sulfate [Proventil Hfa] 6.7 gm IH Q4H PRN #1 [email or web address] PRN Reason: Dyspnea Other Discharge Orders: Physicial Therapy (Amb) Location: None Selected
[2018-10-07] MEDS ORDERED: INDERAL PO SCH (12:00)
[2018-10-07] MEDS: APRESOLINE IV PRN (13:55)
[2018-10-07] MEDS: APRESOLINE PO SCH (13:55)
[2018-10-07] MEDS ORDERED: APRESOLINE PO SCH (14:00)
--- NOTE | 2018-10-07 16:16 | Progress Note ---
Assessment and Plan Assessment and plan: (1) Acute CVA (cerebral vascular accident) Current Visit: No Status: Acute Qualifiers: Precerebral and cerebral artery: middle cerebral artery Laterality of affected vessel: left Plan to address problem: CVA Protocol: CT head, MRI Brain, MRA Brain, Echo, Carotid Doppler, Antiplatet therapy, PT/OT/Speech, Lipid panel, statin therapy, Neurology consulted. 3/5 power in RUE 4/5 power in RLE MRI could not be done because of patients weight CT head; Probable chronic ischemic changes as described. No definite signs of acute disease. Small left-sided scalp lipoma. Acute rehab ordered ECHO EF 55 to 60 percent (2) HTN (hypertension) Current Visit: Yes Status: Acute Qualifiers: Hypertension type: essential hypertension Qualified Code(s): I10 - Essential (primary) hypertension Plan to address problem: permissive hypertension overnight, monitor bp q shift, (3) Obesity Current Visit: Yes Status: Acute Bariatric surgery referral as outpatient (4) Right sided weakness PT consulted, OT consulted, (5) DVT prophylaxis SCD to BLE while in bed, pt ambulatory - Patient Problems (1) CVA (cerebral vascular accident) Current Visit: Yes Status: Acute (2) HTN (hypertension) Current Visit: Yes Status: Acute Qualifiers: Hypertension type: essential hypertension Qualified Code(s): I10 - Essential (primary) hypertension (3) Obesity Current Visit: Yes Status: Acute History Interval history: Patient was seen and evaluated this morning, patient said he had episode of shortness of breath briefly. No other complaints. Hospitalist Physical - Physical exam Narrative exam: Not in cardiopulmonary distress. The patient is obese. Vital signs as documented. Head exam is unremarkable. No scleral icterus . Neck is without jugular venous distension, thyromegaly, or carotid bruits. Lungs are clear to auscultation. Cardiac exam reveals regular rate and Rhythm. First and second heart sounds normal. No murmurs, rubs or gallops. Abdominal exam reveals normal bowel sounds, no masses, no organomegaly and no aortic enlargement. Extremities are nonedematous and both femoral and pedal pulses are normal. GAS ENGINEER: Alert and oriented 3. Mild right-sided weakness - Constitutional Vitals: Temp Pulse Resp BP Pulse Ox 98.0 F 74 20 176/103 98 10/07/18 11:52 10/07/18 13:55 10/07/18 11:52 10/07/18 13:55 10/07/18 11:52 General appearance: Present: no acute distress, well-nourished Results - Labs CBC & Chem 7: 10/02/18 15:20 10/07/18 05:40 Labs: Laboratory Last Values WBC 8.8 K/mm3 (4.5-11.0) 10/02/18 15:20 RBC 4.43 M/mm3 (3.65-5.03) 10/02/18 15:20 Hgb 13.9 gm/dl (11.8-15.2) 10/02/18 15:20 Hct 41.7 % (35.5-45.6) 10/02/18 15:20 MCV 94 fl (84-94) 10/02/18 15:20 MCH 31 pg (28-32) 10/02/18 15:20 MCHC 33 % (32-34) 10/02/18 15:20 RDW 14.4 % (13.2-15.2) 10/02/18 15:20 Plt Count 337 K/mm3 (140-440) 10/02/18 15:20 Lymph % (Auto) 17.3 % (13.4-35.0) 10/02/18 15:20 [place] % (Auto) 8.2 % (0.0-7.3) H 10/02/18 15:20 Eos % (Auto) 2.0 % (0.0-4.3) 10/02/18 15:20 Baso % (Auto) 0.6 % (0.0-1.8) 10/02/18 15:20 Lymph # 1.5 K/mm3 (1.2-5.4) 10/02/18 15:20 [place] # 0.7 K/mm3 (0.0-0.8) 10/02/18 15:20 Eos # 0.2 K/mm3 (0.0-0.4) 10/02/18 15:20 Baso # 0.0 K/mm3 (0.0-0.1) 10/02/18 15:20 Seg Neutrophils % 71.9 % (40.0-70.0) H 10/02/18 15:20 Seg Neutrophils # 6.3 K/mm3 (1.8-7.7) 10/02/18 15:20 Sodium 141 mmol/L (137-145) 10/07/18 05:40 Potassium 3.8 mmol/L (3.6-5.0) 10/07/18 05:40 Chloride 103.7 mmol/L (98-107) 10/07/18 05:40 Carbon Dioxide 27 mmol/L (22-30) 10/07/18 05:40 14 mmol/L 10/07/18 05:40 BUN 16 mg/dL (9-20) 10/07/18 05:40 0.6 mg/dL (0.8-1.5) L 10/07/18 05:40 Estimated GFR > 60 ml/min 10/07/18 05:40 27 % 10/07/18 05:40 Glucose 114 mg/dL (75-100) H 10/07/18 05:40 POC Glucose 94 (70-105) 10/02/18 17:31 Calcium 8.4 mg/dL (8.4-10.2) 10/07/18 05:40 Magnesium 2.10 mg/dL (1.7-2.3) 10/06/18 Unknown 0.40 mg/dL (0.1-1.2) 10/06/18 05:41 AST 13 units/L (5-40) 10/06/18 05:41 ALT 15 units/L (7-56) 10/06/18 05:41 77 units/L (35-129) 10/06/18 05:41 265 units/L (55-170) H 10/02/18 15:20 CK-MB (CK-2) 3.6 ng/mL (0.0-4.0) 10/02/18 15:20 CK-MB (CK-2) Rel Index 1.3 (0-4) 10/02/18 15:20 < 0.010 ng/mL (0.00-0.029) 10/02/18 15:20 6.5 g/dL (6.3-8.2) 10/06/18 05:41 3.6 g/dL (3.9-5) L 10/06/18 05:41 1.2 % 10/06/18 05:41 Triglycerides 92 mg/dL (2-149) 10/05/18 15:00 Cholesterol 160 mg/dL (50-199) 10/05/18 15:00 116 mg/dL (50-130) 10/05/18 15:00 38 mg/dL (40-59) L 10/05/18 15:00 4.21 % 10/05/18 15:00 TSH 3.010 mlU/mL (0.270-4.200) 10/05/18 21:11 Yellow (Yellow) 10/02/18 13:55 Clear (Clear) 10/02/18 13:55 7.0 (5.0-7.0) 10/02/18 13:55 Ur Specific [place] 1.019 (1.003-1.030) 10/02/18 13:55 <15 mg/dl mg/dL (Negative) 10/02/18 13:55 Neg mg/dL (Negative) 10/02/18 13:55 Neg mg/dL (Negative) 10/02/18 13:55 Sm (Negative) 10/02/18 13:55 Neg (Negative) 10/02/18 13:55 Neg (Negative) 10/02/18 13:55 < 2.0 mg/dL (<2.0) 10/02/18 13:55 Ur Leukocyte Esterase Neg (Negative) 10/02/18 13:55 3.0 /HPF (0.0-6.0) 10/02/18 13:55 5.0 /HPF (0.0-6.0) 10/02/18 13:55 U Epithel Cells (Auto) 1.0 /HPF (0-13.0) 10/02/18 13:55 Few /HPF 10/02/18 13:55 Active Medications - Current Medications Current Medications: Generic Name Dose Route Start Last Admin Trade Name Freq PRN Reason Stop Dose Admin Acetaminophen 650 mg 10/02/18 17:28 10/03/18 18:52 Tylenol PO 650 mg Q4H PRN Administration Pain, Mild (1-3) Albuterol 2.5 mg 10/02/18 17:28 Proventil IH Q3HRT PRN Shortness Of Breath Atorvastatin Calcium 40 mg 10/02/18 22:00 10/06/18 22:11 Lipitor PO 40 mg QHS MONSE Administration Bisacodyl 10 mg 10/02/18 17:28 Dulcolax ME QDAY PRN Constipation Clopidogrel Bisulfate 75 mg 10/03/18 10:00 10/07/18 09:59 Plavix PO 75 mg QDAY MONSE Administration Hydralazine HCl 10 mg 10/04/18 09:10 10/07/18 13:55 Apresoline IV 10 mg Q3H PRN Administration Hypertension Hydralazine HCl 100 mg 10/07/18 12:00 10/07/18 13:55 Apresoline PO 100 mg TID MONSE Administration Magnesium Hydroxide 30 ml 10/02/18 17:28 Milk Of Magnesia PO Q4H PRN Constipation Metoclopramide HCl 10 mg 10/02/18 17:28 Reglan PO Q6H PRN Nausea And Vomiting Metoprolol Tartrate 50 mg 10/05/18 22:00 10/07/18 09:59 Lopressor PO 50 mg BID MONSE Administration Nifedipine 90 mg 10/07/18 10:00 10/07/18 09:59 Procardia Xl PO 90 mg QDAY [facility] Administration Ondansetron HCl 4 mg 10/02/18 17:28 10/05/18 02:50 Zofran IV 4 mg Q8H PRN Administration Nausea And Vomiting Promethazine HCl 25 mg 10/02/18 17:28 Phenergan ME Q6H PRN Nausea And Vomiting Sodium Chloride 10 ml 10/02/18 17:28 10/04/18 10:00 Sodium Chloride Flush Syringe 10 Ml IV 10 ml PRN PRN Administration LINE FLUSH
[2018-10-07] MEDS: CATAPRES PO SCH (16:38)
[2018-10-08] MEDS: APRESOLINE PO SCH ×3 (05:10→14:56)
[2018-10-08] MEDS: CATAPRES PO SCH ×3 (05:11→10:00)
[2018-10-08] MEDS: LOPRESSOR PO SCH (09:00)
[2018-10-08] MEDS: PROCARDIA XL PO SCH (09:01)
[2018-10-08] MEDS: PLAVIX PO SCH (09:01)
--- NOTE | 2018-10-08 11:13 | Progress Note ---
Assessment and Plan Acute CVA initiated on plavix Hypertension -better controlled Transient NSVT pt remained asymptomatic TSH is normal Obese Echocardiogram showed normal left ventricular systolic function, ejection fraction 55-60%. Contrast bubble study was suboptimal, but negative for PFO. Conservative cardiac management. We will follow intermittently. Subjective Date of service: 10/08/18 Principal diagnosis: L CVA with Rt side weakness Interval history: Blood pressure has improved. No reported events on telemetry overnight. Objective Vital Signs Temp Pulse Pulse Pulse Resp BP Pulse Ox 10/08/18 10:00 82 82 80 10/08/18 09:01 82 140/85 10/08/18 09:00 82 140/82 10/08/18 07:33 97.9 F 82 20 140/85 93 10/08/18 05:11 89 144/79 10/08/18 04:43 98.3 F 62 24 144/79 97 10/07/18 23:30 98.5 F 63 24 153/83 96 10/07/18 22:31 89 162/77 10/07/18 20:46 98.2 F 73 24 161/89 96 10/07/18 18:18 98.0 F 76 20 141/71 98 10/07/18 16:38 89 161/78 10/07/18 16:19 98.2 F 90 20 161/78 97 10/07/18 13:55 74 176/103 10/07/18 11:52 98.0 F 74 20 176/103 98 - Physical Examination General: No Apparent Distress HEENT: Positive: PERRL Neuro: Positive: Weakness Extremities: Absent: edema
[2018-10-08 15:44] VITALS: BP 140/82
== END 2018-10-08 16:00 | disposition home health service (06) | DRG 65 ==
LOC: ED 14:19 → 4A 17:28
PROVIDERS: ADMIT Internal Medicine; ATTEND Internal Medicine
DX: I63.9 Cerebral infarction, unspecified (principal); G81.91 Hemiplegia, unspecified affecting right dominant side; I47.2 Ventricular tachycardia; I10 Essential (primary) hypertension; E66.9 Obesity, unspecified; Z68.37 Body mass index [BMI] 37.0-37.9, adult; Z82.49 Family history of ischemic heart disease and other diseases of the circulatory system
CPT/HCPCS: 36415; 70450; 80048; 80053; 80061; 81001; 82550; 82553; 82962; 83735; 84443; 84484; 85025; 93005; 93010; 93306; 93880; G0378; A9270-GY; J0360; J2405

== ENCOUNTER 2019-03-10 06:38 | Emergency (ER) | payer OTHER ==
--- NOTE | 2019-03-10 06:45 | Emergency Department Report ---
ED Neuro Deficit HPI - General Stated Complaint: POSS CVA Time Seen by Provider: 03/10/19 06:44 - History of Present Illness Initial Comments: Patient is 58-year-old male with history of hypertension, morbid obesity and previous history of right sided ischemic stroke in September 2018 with mild residual weakness. Patient presented to the ER accompanied by his significant other who stated that she noticed that patient had soft speech yesterday but when she woke up this morning at 5:05 AM she noticed that he has more weakness on his right side. Patient is alert, oriented 3 in no acute distress. Stroke protocol immediately initiated and patient immediately transferred to CT scan. -: This morning Location: speech - Related Data Home Medications: Previous Rx's Medication Instructions Recorded Last Taken Type Albuterol Sulfate [Proventil Hfa] 6.7 gm IH Q4H PRN #1 hfa.aer.ad 10/07/18 Unknown Rx AtorvaSTATin [Lipitor] 40 mg PO QHS #30 tablet 10/07/18 Unknown Rx Clopidogrel [Plavix] 75 mg PO QDAY #30 tablet 10/07/18 Unknown Rx Metoprolol [Lopressor TAB] 50 mg PO BID #60 tablet 10/07/18 Unknown Rx NIFEdipine XL [Procardia Xl] 90 mg PO QDAY #30 tablet 10/07/18 Unknown Rx hydrALAZINE [Apresoline TAB] 100 mg PO TID #90 tab 10/07/18 Unknown Rx cloNIDine [Catapres] 0.2 mg PO Q12HR #60 tablet 10/08/18 Unknown Rx Allergies/Adverse Reactions: Allergies Allergy/AdvReac Type Severity Reaction Status Date / Time No Known Allergies Allergy Verified 10/02/18 15:05 ED Review of Systems ROS: Stated complaint: POSS CVA Other details as noted in HPI Comment: All other systems reviewed and negative Constitutional: denies: chills, fever Respiratory: denies: cough, shortness of breath Cardiovascular: denies: chest pain Gastrointestinal: denies: abdominal pain, nausea Musculoskeletal: denies: back pain Neurological: weakness. denies: headache ED Past Medical Hx - Past Medical History Hx Hypertension: Yes - Social History Smoking Status: Never Smoker - Medications Home Medications: Home Medications Medication Instructions Recorded Confirmed Last Taken Type Albuterol Sulfate [Proventil Hfa] 6.7 gm IH Q4H PRN #1 hfa.aer.ad 10/07/18 Unknown Rx AtorvaSTATin [Lipitor] 40 mg PO QHS #30 tablet 10/07/18 Unknown Rx Clopidogrel [Plavix] 75 mg PO QDAY #30 tablet 10/07/18 Unknown Rx Metoprolol [Lopressor TAB] 50 mg PO BID #60 tablet 10/07/18 Unknown Rx NIFEdipine XL [Procardia Xl] 90 mg PO QDAY #30 tablet 10/07/18 Unknown Rx hydrALAZINE [Apresoline TAB] 100 mg PO TID #90 tab 10/07/18 Unknown Rx cloNIDine [Catapres] 0.2 mg PO Q12HR #60 tablet 10/08/18 Unknown Rx ED Neuro Physical Exam - General General appearance: alert, in no apparent distress Suspected Stroke: Yes - Head Head exam: Present: atraumatic, normocephalic, normal inspection - Eye Eye exam: Present: normal appearance, PERRL - ENT ENT exam: Present: normal exam, normal orophraynx, mucous membranes moist - Neck Neck exam: Present: normal inspection, full ROM. Absent: tenderness, meningismus, lymphadenopathy, thyromegaly - Respiratory Respiratory exam: Present: normal lung sounds bilaterally - Cardiovascular Cardiovascular Exam: Present: regular rate, normal rhythm, normal heart sounds - GI/Abdominal GI/Abdominal exam: Present: soft, normal bowel sounds. Absent: distended, tenderness, guarding, rebound, rigid, organomegaly, mass, bruit, pulsatile mass, hernia - Extremities Exam Extremities exam: Present: normal inspection, full ROM, normal capillary refill - Back Exam Back exam: Present: normal inspection, full ROM. Absent: CVA tenderness (R), CVA tenderness (L) - Neurological Exam Neurological exam: Present: alert, oriented X3 - NIHSS Assessment Interval: Baseline 1a. Level of Consciousness: alert/keenly responsive 1b. LOC Questions: answers both correctly 1c. LOC Commands: performs tasks correctly 2. Best Gaze: normal 3. Visual: no visual loss 4. Facial Palsy: minor paralysis 5b. Motor Arm Right: no drift 5a. Motor Arm Left: no drift 6a. Motor Leg Left: no drift 6b. Motor Leg Right: no drift 7. Limb Ataxia: present 1 limb 8. Sensory: normal 9. Best Language: mild/moderate aphasia 10. Dysarthria: mild/moderate dysarthria 11. Extinction/Inattention: no abnormality Total Score: 4 Stroke Severity: Minor Stroke - Psychiatric Psychiatric exam: Present: normal mood - Skin Skin exam: Present: warm, intact ED Course Vital Signs 03/10/19 03/10/19 03/10/19 06:42 06:46 07:00 Temperature 98.6 F 98.9 F Pulse Rate 71 67 71 Respiratory 18 16 18 Rate Blood Pressure 154/79 172/78 Blood Pressure 172/78 [Right] O2 Sat by Pulse 97 98 97 Oximetry 03/10/19 03/10/19 07:16 07:30 Temperature Pulse Rate 60 60 Respiratory 21 Rate Blood Pressure 149/72 149/72 Blood Pressure [Right] O2 Sat by Pulse 96 99 Oximetry - Lab Data Result diagrams: 03/10/19 06:59 03/10/19 06:59 Lab Results 03/10/19 03/10/19 03/10/19 Range/Units 06:59 06:59 06:59 WBC 7.3 (4.5-11.0) K/mm3 RBC 3.94 (3.65-5.03) M/mm3 Hgb 12.7 (11.8-15.2) gm/dl Hct 37.0 (35.5-45.6) % MCV 94 (84-94) fl MCH 32 (28-32) pg MCHC 34 (32-34) % RDW 14.8 (13.2-15.2) % Plt Count 310 (140-440) K/mm3 Lymph % (Auto) 20.9 (13.4-35.0) % [place] % (Auto) 7.4 H (0.0-7.3) % Eos % (Auto) 3.3 (0.0-4.3) % Baso % (Auto) 0.7 (0.0-1.8) % Lymph # 1.5 (1.2-5.4) K/mm3 [place] # 0.5 (0.0-0.8) K/mm3 Eos # 0.2 (0.0-0.4) K/mm3 Baso # 0.1 (0.0-0.1) K/mm3 Seg Neutrophils % 67.7 (40.0-70.0) % Seg Neutrophils # 4.9 (1.8-7.7) K/mm3 PT 14.6 (12.2-14.9) Sec. INR 1.15 H (0.87-1.13) APTT 30.2 (24.2-36.6) Sec. Thrombin Time 16.6 (15.1-19.6) Sec. Sodium 142 (137-145) mmol/L Potassium 3.6 (3.6-5.0) mmol/L Chloride 104.2 (98-107) mmol/L Carbon Dioxide 26 (22-30) mmol/L Anion Gap 15 mmol/L BUN 17 (9-20) mg/dL Creatinine 0.9 (0.8-1.5) mg/dL Estimated GFR > 60 ml/min BUN/Creatinine Ratio 19 % Glucose 131 H (75-100) mg/dL Calcium 9.2 (8.4-10.2) mg/dL Troponin T < 0.010 (0.00-0.029) ng/mL - EKG Data -: EKG Interpreted by Me EKG shows normal: sinus rhythm Rate: bradycardia Interpretation: no acute changes - Radiology Data Radiology results: report reviewed - Medical Decision Making Patient is 58-year-old male with history of hypertension, morbid obesity and previous history of right sided ischemic stroke in September 2018 with mild residual weakness. Patient presented to the ER accompanied by his significant other who stated that she noticed that patient had soft speech yesterday but when she woke up this morning at 5:05 AM she noticed that he has more weakness on his right side. Patient is alert, oriented 3 in no acute distress. Stroke protocol immediately initiated and patient immediately transferred to CT scan. Patient's CT brain is negative for acute finding. Patient examined by Dr. Mathias, stroke telemetry neurologist. Dr. Mathias stated that patient is not a TPA candidate because he is out of TPA window. He advised patient need to be admitted to the hospital for further management. I discussed the patient with Dr. Angel from [facility] and she advised that Dr. Trevino accepted the patient to be transferred to [facility] for further management. Patient transferred in stable condition Critical Care Time: Yes Critical care time in (mins) excluding proc time.: 30 Critical care attestation.: If time is entered above; I have spent that time in minutes in the direct care of this critically ill patient, excluding procedure time. ED Disposition Clinical Impression: CVA (cerebral vascular accident) Disposition: [id number]/TX-[id number] ANOTHER TYPE HLTHCARE Is pt being admited?: No Condition: Stable
[2019-03-10 07:14] LABS: Basophils # (Auto) 0.1 K/mm3 (0.0-0.1); Basophils % (Auto) 0.7 % (0.0-1.8); Eosinophils # (Auto) 0.2 K/mm3 (0.0-0.4); Eosinophils % (Auto) 3.3 % (0.0-4.3); Hemoglobin 12.7 gm/dl (11.8-15.2); Lymphocytes # (Auto) 1.5 K/mm3 (1.2-5.4); Lymphocytes % (Auto) 20.9 % (13.4-35.0); Mean Corpuscular HGB Conc 34 % (32-34); Mean Corpuscular Volume 94 fl (84-94); Monocytes # (Auto) 0.5 K/mm3 (0.0-0.8); Monocytes % (Auto) 7.4 % (0.0-7.3); Platelet Count 310 K/mm3 (140-440); Red Blood Count 3.94 M/mm3 (3.65-5.03); Red Cell Distribution Width 14.8 % (13.2-15.2)
--- NOTE | 2019-03-10 07:18 | Cat Scan Report ---
CT HEAD WITHOUT CONTRAST INDICATION / CLINICAL INFORMATION: neuro deficits <6hrs or sx present upon awakening. TECHNIQUE: All CT scans at this location are performed using CT dose reduction for ALARA by means of automated e xposure control. COMPARISON: CT dated 10/02/18 FINDINGS: HEMORRHAGE: None. EXTRA-AXIAL SPACES: Normal in size and morphology for the patient's age. VENTRICULAR SYSTEM: Normal in size and morphology for the patient's age. CEREBRAL PARENCHYMA: Slight increase in white matter hypodensities likely related to microangiopathy. No definite acute territorial infarct identified. MIDLINE SHIFT OR HERNIATION: None. CEREBELLUM / BRAINSTEM: No significant abnormality. ORBITS: Normal as visualized. SOFT TISSUES of HEAD: No significant abnormality. CALVARIUM: No significant abnormality. PARANASAL SINUSES / MASTOID AIR CELLS: Normal as visualized. ADDITIONAL FINDINGS: None. IMPRESSION: 1. No definite acute territorial infarct. 2. Slight increase in white matter microangiopathic changes. COMMUNICATION: Time of Communication (MESSAGING ARCHITECT/CDT): 6:13 AM Licensed Practitioner Receiving Report: Dr. Ceja in the ED Signer Name: Eileen Escalante MD Signed: 03/10/2019 7:14 AM Workstation Name: [email or web address]
[2019-03-10 07:24] LABS: INR 1.15 (0.87-1.13)
--- NOTE | 2019-03-10 07:24 | Emergency Department Report ---
ED Neuro Deficit HPI - General Chief Complaint: Neuro Symptoms/Deficit Stated Complaint: POSS CVA Time Seen by Provider: 03/10/19 06:44 Source: patient, family Mode of arrival: Ambulatory Limitations: Physical Limitation - History of Present Illness Initial Comments: [facility] Date of Service: 03/10/2019 06:44:29 Impression: Left Hemispheric Comments: Slurred speech, worse today than yesterday. Possible new left hemispheric stroke. Per patient, right arm mild weakness at baseline from previous stroke. Out of therapeutic window, onset of symptoms yesterday. Will need admission for further workup. Mechanism of Stroke: Not Clear Metrics: Last Known Well: 03/09/2019 08:00:00 [employer] Notification Time: 03/10/2019 06:43:25 Arrival Time: 03/10/2019 06:38:00 Stamp Time: 03/10/2019 06:44:29 Time First Login Attempt: 03/10/2019 06:47:18 Video Start Time: 03/10/2019 06:47:18 Symptoms: slurred speech NIHSS Start Assessment Time: 03/10/2019 06:52:38 Patient is not a candidate for tPA. Patient was not deemed candidate for tPA thrombolytics because of Last Well Known Above 4.5 Hours. Video End Time: 03/10/2019 07:02:23 CT head was reviewed. Advanced imaging was not obtained as the presentation was not suggestive of Large Vessel Occlusive Disease. ER Physician notified of the decision on thrombolytics management on 03/10/2019 07:03:36 Our recommendations are outlined below. Recommendations: Activate Stroke Protocol Admission/Order Set Stroke/Telemetry Floor Neuro Checks Bedside Swallow Eval DVT Prophylaxis IV Fluids, Normal Saline Head of Bed Below 30 Degrees Euglycemia and Avoid Hyperthermia (PRN Acetaminophen) Continue current antiplatelets Recommended Scan: MRI Head Without Contrast; mra head and neck. Lipid Panel to Be Obtained, if Not Done in the Last Three Months Therapies: Physical Therapy, Occupational Therapy, Speech Therapy Assessment When Applicable Dysphaghia Screen: Swallow Evaluation, Bedside DVT prophylaxis: Choice of Primary Team Sign Out: Discussed with Emergency Department Provider History of Present Illness: Patient is a 58 year old Male. Patient was brought by private transportation with symptoms of slurred speech The patient comes to the hospital for slurred speech. This started at around 2000 yesterday and persisted until this morning, which he thought it was worse and decided to come to the hospital. He had a recent stroke (september 2018) which left him with some right arm coordination issues. ? history of an irregular heart beat. Takes asa and plavix daily. CT head was reviewed, no acute findings per rad read Last seen normal was beyond 4.5 hours of presentation. Examination: 1A: Level of Consciousness - Alert; keenly responsive + 0 1B: Ask Month and Age - Both Questions Right + 0 1C: Blink Eyes & Squeeze Hands - Performs Both Tasks + 0 2: Test Horizontal Extraocular Movements - Normal + 0 3: Test Visual Rg - No Visual Loss + 0 4: Test Facial Palsy (Use Grimace if Obtunded) - Normal symmetry + 0 5A: Test Left Arm Motor Drift - No Drift for 10 Seconds + 0 5B: Test Right Arm Motor Drift - No Drift for 10 Seconds + 0 6A: Test Left Leg Motor Drift - No Drift for 5 Seconds + 0 6B: Test Right Leg Motor Drift - No Drift for 5 Seconds + 0 7: Test Limb Ataxia (FNF/Heel-Piña) - Ataxia in 1 Limb + 1 8: Test Sensation - Normal; No sensory loss + 0 9: Test Language/Aphasia - Normal; No aphasia + 0 10: Test Dysarthria - Mild-Moderate Dysarthria: Slurring but can be understood + 1 11: Test Extinction/Inattention - No abnormality + 0 NIHSS Score: 2 Patient was informed the Neurology Consult would happen via TeleHealth consult by way of interactive audio and video telecommunications and consented to receiving care in this manner. Due to the immediate potential for life-threatening deterioration due to underlying acute neurologic illness, I spent 35 minutes providing critical care. This time includes time for face to face visit via telemedicine, review of medical records, imaging studies and discussion of findings with providers, the patient and/or family. Dr Bishnu [facility] Location: speech - Related Data Home Medications: Previous Rx's Medication Instructions Recorded Last Taken Type Albuterol Sulfate [Proventil Hfa] 6.7 gm IH Q4H PRN #1 hfa.aer.ad 10/07/18 Unknown Rx AtorvaSTATin [Lipitor] 40 mg PO QHS #30 tablet 10/07/18 Unknown Rx Clopidogrel [Plavix] 75 mg PO QDAY #30 tablet 10/07/18 Unknown Rx Metoprolol [Lopressor TAB] 50 mg PO BID #60 tablet 10/07/18 Unknown Rx NIFEdipine XL [Procardia Xl] 90 mg PO QDAY #30 tablet 10/07/18 Unknown Rx hydrALAZINE [Apresoline TAB] 100 mg PO TID #90 tab 10/07/18 Unknown Rx cloNIDine [Catapres] 0.2 mg PO Q12HR #60 tablet 10/08/18 Unknown Rx Allergies/Adverse Reactions: Allergies Allergy/AdvReac Type Severity Reaction Status Date / Time No Known Allergies Allergy Verified 10/02/18 15:05 ED Review of Systems ROS: Stated complaint: POSS CVA Other details as noted in HPI Constitutional: denies: chills, fever Respiratory: denies: cough, shortness of breath Cardiovascular: denies: chest pain Gastrointestinal: denies: abdominal pain, nausea Musculoskeletal: denies: back pain Neurological: weakness. denies: headache ED Past Medical Hx - Past Medical History Previous Medical History?: Yes Hx Hypertension: Yes Hx CVA: Yes - Surgical History Past Surgical History?: No - Social History Smoking Status: Never Smoker - Medications Home Medications: Home Medications Medication Instructions Recorded Confirmed Last Taken Type Albuterol Sulfate [Proventil Hfa] 6.7 gm IH Q4H PRN #1 hfa.aer.ad 10/07/18 Unknown Rx AtorvaSTATin [Lipitor] 40 mg PO QHS #30 tablet 10/07/18 Unknown Rx Clopidogrel [Plavix] 75 mg PO QDAY #30 tablet 10/07/18 Unknown Rx Metoprolol [Lopressor TAB] 50 mg PO BID #60 tablet 10/07/18 Unknown Rx NIFEdipine XL [Procardia Xl] 90 mg PO QDAY #30 tablet 10/07/18 Unknown Rx hydrALAZINE [Apresoline TAB] 100 mg PO TID #90 tab 10/07/18 Unknown Rx cloNIDine [Catapres] 0.2 mg PO Q12HR #60 tablet 10/08/18 Unknown Rx ED Neuro Physical Exam - General Limitations: Physical Limitation General appearance: alert, in no apparent distress Suspected Stroke: Yes - NIHSS Assessment Interval: Baseline 1a. Level of Consciousness: alert/keenly responsive 1b. LOC Questions: answers both correctly 1c. LOC Commands: performs tasks correctly 2. Best Gaze: normal 3. Visual: no visual loss 4. Facial Palsy: normal symmetrical movement 5b. Motor Arm Right: no drift 5a. Motor Arm Left: no drift 6a. Motor Leg Left: no drift 6b. Motor Leg Right: no drift 7. Limb Ataxia: present 1 limb 8. Sensory: normal 9. Best Language: no aphasia 10. Dysarthria: mild/moderate dysarthria 11. Extinction/Inattention: no abnormality Total Score: 2 Stroke Severity: Minor Stroke ED Course Vital Signs 03/10/19 03/10/19 06:42 06:46 Temperature 98.6 F 98.9 F Pulse Rate 71 67 Respiratory 18 16 Rate Blood Pressure 154/79 Blood Pressure 172/78 [Right] O2 Sat by Pulse 97 98 Oximetry - Lab Data Result diagrams: 03/10/19 06:59 Lab Results 03/10/19 Range/Units 06:59 WBC 7.3 (4.5-11.0) K/mm3 RBC 3.94 (3.65-5.03) M/mm3 Hgb 12.7 (11.8-15.2) gm/dl Hct 37.0 (35.5-45.6) % MCV 94 (84-94) fl MCH 32 (28-32) pg MCHC 34 (32-34) % RDW 14.8 (13.2-15.2) % Plt Count 310 (140-440) K/mm3 Lymph % (Auto) 20.9 (13.4-35.0) % [place] % (Auto) 7.4 H (0.0-7.3) % Eos % (Auto) 3.3 (0.0-4.3) % Baso % (Auto) 0.7 (0.0-1.8) % Lymph # 1.5 (1.2-5.4) K/mm3 [place] # 0.5 (0.0-0.8) K/mm3 Eos # 0.2 (0.0-0.4) K/mm3 Baso # 0.1 (0.0-0.1) K/mm3 Seg Neutrophils % 67.7 (40.0-70.0) % Seg Neutrophils # 4.9 (1.8-7.7) K/mm3 Critical care attestation.: If time is entered above; I have spent that time in minutes in the direct care of this critically ill patient, excluding procedure time. ED Disposition Clinical Impression: CVA (cerebral vascular accident) Disposition: [id number] OP ADMIT IP TO THIS HOSP Is pt being admited?: Yes Condition: Stable
[2019-03-10 07:25] LABS: Partial Thromboplastin Time 30.2 Sec. (24.2-36.6); Thrombin Time 16.6 Sec. (15.1-19.6)
[2019-03-10 07:27] LABS: BUN/Creatinine Ratio 19; Blood Urea Nitrogen 17 mg/dL (9-20); Calcium 9.2 mg/dL (8.4-10.2); Hemolysis Index 2
[2019-03-10] MEDS ORDERED: ASPIRIN 81 MG TAB CHEW PO ONE (07:45)
[2019-03-10 08:53] VITALS: BP 165/76
== END 2019-03-10 10:01 | disposition other institution (70) ==
LOC: ED 06:38
DX: I69.351 Hemiplegia and hemiparesis following cerebral infarction affecting right dominant side (principal); I10 Essential (primary) hypertension; Z79.899 Other long term (current) drug therapy
CPT/HCPCS: 36415; 70450; 80048; 82962; 84484; 85025; 85610; 85670; 85730; 93005; 93010